=== PATIENT | male | born 1990 | race Caucasian/White ===

== ENCOUNTER 2019-07-15 21:10 | Emergency (ER) | payer MEDICAID, SELFPAY ==
[2019-07-15 21:11] VITALS: BP 154/78; PULSE 103; RESP 18; TEMP 36.3; O2SAT 99; BMI 34.5
--- NOTE | 2019-07-15 21:19 | ED.DCSUM_ITS ---
History of Present Illness Chief Complaint: Nausea/Vomiting/Diarrhea Informant: Patient Onset: Today Context: Gradual Onset Timing: Continuous Current Severity: Moderate Maximum Severity: Severe Narrative: The patient presents to the emergency department nausea, vomiting, diarrhea. He states that his daughter is sick with similar symptoms and has been for 2 days. He states that about 1:00 today, he just started to feel generally ill. He states that about 5 PM, he began to vomit. Shortly thereafter, he began to have multiple bouts of loose, watery diarrhea. He states it was happening at the same time. He felt lightheaded and felt like he was going to pass out. He does describe some abdominal cramping. The patient is otherwise healthy. He is on no daily medications. He is unsure if he had fever. He denies any other systemic symptoms. Prior similar symptoms: No Recent Illness/Hospitalization: No Past Medical History - Allergies and Home Meds Allergies/Adverse Reactions: Allergies No Known Allergies Allergy (Verified 07/15/19 21:11) Primary Care Physician: Chey Dailey MD [Primary Care Provider] - Prior records reviewed: Yes Past Medical History: None Surgical History: no surgical history Smoking Status: Never smoker Review of Systems General: Reports: Chills. Denies: Fever, Sweats Eyes: Denies: Visual changes - bilaterally, Diplopia ENT: Denies: Rhinorrhea, Sore throat Cardiovascular: Denies: Chest pain, Palpitations Respiratory: Denies: Dyspnea, Cough, Dyspnea on exertion Gastrointestinal: Reports: Abdominal pain, Nausea, Vomiting, Diarrhea. Denies: Melena, Hematochezia Genitourinary: Denies: Dysuria, Hematuria, Frequency Musculoskeletal: Denies: Back pain, Extremity Pain Skin: Denies: Rash, Wounds Neurological: Denies: Headache, Weakness, Numbness Physical Exam Vital Signs/Narrative: Vital Signs Temp Pulse Resp BP Pulse Ox 07/15/19 21:11 97.4 F L 103 H 18 154/78 H 99 Inital Vital Signs reviewed: Yes General: Well nourished, Well developed, No Acute Distress Head: Normocephalic, Atraumatic Eyes: Perrl, EOMI ENT: Moist mucous membranes, No rhinorrhea Neck: Supple, Nontender Cardiovascular: Regular rate, Regular rhythm, No murmurs Respiratory: No distress, CTA bilaterally, Chest nontender Abdomen: Soft, Nondistended, Tender, Hyperactive bowel sounds. Negative for: Guarding, Rebound tenderness, Psoas sign, Obturator sign, Rovsig's sign, Covarrubias's sign Back: Nontender, Normal Inspection Extremities: Nontender, No edema Skin: Normal color, No rash Neurological: Alert, Oriented x3, Cranial nerves II-XII grossly intact, Normal Strength, Normal Sensation Psychological: Normal affect, Normal Mood Diagnostic/Tx/Re-eval Abnormal Lab Results 07/15/19 07/15/19 21:23 21:23 WBC 21.5 H RBC 5.13 Hgb 15.1 Hct 44.3 MCV 86.4 MCH 29.4 MCHC 34.1 RDW Std Deviation 39.5 RDW Coeff of [place] 12.7 Plt Count 373 MPV 9.2 Immature Gran % (Auto) 0.900 Neut % (Auto) 89.8 H Lymph % (Auto) 3.7 L [place] % (Auto) 4.7 Eos % (Auto) 0.7 Baso % (Auto) 0.2 Absolute Neuts (auto) 19.3 H Absolute Lymphs (auto) 0.79 L Nucleated RBC % 0 Sodium 139 Potassium 3.8 Chloride 104 Carbon Dioxide 27.0 Anion Gap 8 BUN 18 Creatinine 1.12 Estim Creat Clear Calc 118.40 Est GFR (MDRD) Af Amer 99 Est GFR (MDRD) Non-Af 82 BUN/Creatinine Ratio 16.1 Glucose 136 H Calcium 8.9 Total Bilirubin 0.60 AST 21 ALT 50 Alkaline Phosphatase 94 Total Protein 8.4 H Albumin 4.3 Globulin 4.1 Albumin/Globulin Ratio 1.0 - Medical Decision Making The patient presents with nausea, vomiting, diarrhea. He does have sick contacts with similar illness at home. His abdomen was soft with minimal diffuse tenderness, but no rebound or guarding. His bowel sounds are hyperactive. IV was established. Patient was given fluids and antiemetics. He was still feeling nauseated. Screening labs do show cytosis, but based on his illness I do feel that this fits. His electrolytes were obtained were unremarkable. The patient did have better control of his nausea after medication. The plan will be to aggressively hydrate the patient and reevaluate him. As long as he is tolerating oral and feeling improved, I do feel that he can safely be discharged. Impression 1. Gastroenteritis ED Disposition - Plan for ED Patient: Instructions: GASTROENTERITIS, Viral (5y-Adult) Prescriptions: Ondansetron [Zofran Odt] 4 mg PO Q8H PRN PRN #10 tab PRN Reason: Nausea Prescription Printed Referrals: Chey Dailey MD [Primary Care Provider] -
[2019-07-15 21:20] VITALS: PULSE 91; RESP 18; O2SAT 99
[2019-07-15] MEDS: 0.9% Normal Saline 1,000 ML 1000 ML IV ×2 (21:22→23:07)
[2019-07-15] MEDS: proMETHazine 25 MG/ML Syringe 12.5 MG IV (21:24)
[2019-07-15 21:29] LABS: Absolute Lymphocyte Count 0.79 X10^3/uL (0.83-4.51); Absolute Neutrophil Count 19.3 X10^3/uL (2.0-7.7); Basophil# 0.05 X10^3/uL; Basophil% 0.2 % (0-1); Eosinophil# 0.15 X10^3/uL; Eosinophils% 0.7 % (0-5); Hematocrit 44.3 % (40-54); Hemoglobin 15.1 g/dL (13.0-16.5); Lymphocyte # 0.79 X10^3/ul (4.0); Lymphocyte % 3.7 % (19-41); Mean Corp Hgb Conc 34.1 g/dL (32-36); Mean Corpuscular Hgb 29.4 pg (27.0-32.0); Mean Corpuscular Volume 86.4 fL (80-94); Mean Platelet Vol. 9.2 fl (6.2-12.0); Monocyte# 1.01 X10^3/uL; Monocyte% 4.7 % (0-10); NRBC Flagged by Analyzer 0 % (0-5); Neutrophil # 19.31 X10^3/uL (2.7-7.7); Neutrophil % 89.8 % (47-70); Platelet Count 373 K/mm3 (150-450); RBC Distribution Width CV 12.7 % (11.6-14.6); RBC Distribution Width SD 39.5 fl (35.1-43.9); Red Blood Count 5.13 M/mm3 (4.6-6.2); White Blood Count 21.5 K/mm3 (4.4-11.0)
[2019-07-15 21:46] LABS: AST(SGOT) 21 U/L (15-37); Alanine Aminotransfer ALT/SGPT 50 U/L (16-61); Albumin, Serum 4.3 g/dL (3.2-5.0); Alkaline Phosphatase 94 U/L (45-117); Anion Gap 8 (5-15); BUN 18 mg/dL (7-18); BUN/Creat Ratio 16.1 RATIO (10-20); Calcium,Total 8.9 mg/dL (8.5-10.1); Chloride 104 mmol/L (98-107); Creatinine, Serum 1.12 mg/dL (0.70-1.30); EST Glomerular Filtration Rate 82 mL/min (>60); Est Glom Filt Rate - Afr Amer 99 mL/min (>60); Globulin 4.1 g/dL (2.2-4.2); Glucose 136 mg/dL (74-106); Potassium 3.8 mmol/L (3.5-5.1); Protein, Total 8.4 g/dL (6.4-8.2); Sodium Level 139 mmol/L (136-145)
[2019-07-15] MEDS: Ondansetron 4 MG/2 ML Vial IV (21:57)
[2019-07-15 23:35] VITALS: PULSE 94; RESP 24; O2SAT 95
[2019-07-16 02:32] VITALS: BP 142/67; PULSE 105; RESP 20; O2SAT 96
== END 2019-07-16 02:33 | disposition home or self-care (01) ==
LOC: ED 21:33
PROVIDERS: Emergency Provider Emergency Medicine; Family Provider Internal Medicine; PCP Internal Medicine
DX: K52.9 Noninfective gastroenteritis and colitis, unspecified (principal)
CPT/HCPCS: 80053; 85025; 96361; 96374; 96375; 99284; J7030; A4216; J2405

== ENCOUNTER 2020-10-02 09:34 | Emergency (ER) | payer OTHER, MEDICAID, SELFPAY ==
[2020-10-02 09:35] VITALS: BP 160/89; PULSE 86; RESP 18; TEMP 36.6; O2SAT 99; BMI 31.6
--- NOTE | 2020-10-02 09:59 | ED.VISSUMM ---
- ER Visit Summary Date of Service: 10/02/20 Chief Complaint: [Injury to left knee] History of Present Illness: The patient is a 30 M [presents to the emergency department with an injury to the left knee that occurred this morning while at work. Patient states that he works at [employer] and slipped on wet tile causing him to fall awkwardly and twisting the knee. Patient having hard time bearing weight secondary to pain he was able to bear some weight. Patient is concerned because he has had prior femur fracture at the age of 14 that required ORIF. Patient denies any other injuries. This is a Workmen's Comp. injury.] Physical Examination: [HEENT-PERRLA, EOMI. Cranial nerves II through XII grossly intact. TMs clear. Mucous membranes moist. No adenopathy. Cardiovascular-regular rate and rhythm without murmur or ectopy Lungs-clear to auscultation, chest wall stable without crepitus or subcu emphysema Abdomen-normoactive bowel sounds, soft, nontender, no rebound or rigidity, no peritoneal signs. Extremities-intact ?4, normal range of motion, normal pulses. Left knee-patient has diffuse tenderness palpation over the lateral joint line. No obvious effusion noted. No significant swelling noted. Patient has normal anterior and posterior drawer test. Patient does have pain with stress on lateral collateral ligament and there is question of mild laxity noted. Negative Angel's test. Patient neurovascular intact distally. Test Results: [4 view x-rays of left knee obtained and interpreted by myself as no acute fractures or dislocations. Radiology was in agreement but also noted that there was a small joint effusion.] Emergency Department Course and Treatment: [Patient was placed in a knee immobilizer and given crutches.] Treatment Plan: [Patient will be given a prescription for [place] for pain. Patient was given work restrictions. Patient will be referred to orthopedics for follow-up.] Disposition: [Discharged home in stable condition] Impression: [Left knee sprain-possible internal derangement] This note was generated with [employer] software. It may contain incorrect words, spelling, and punctuation that were not noted in review of the chart prior to signing ED Disposition - Plan for ED Patient: Referrals: Chey Dailey MD [Primary Care Provider] -
--- NOTE | 2020-10-02 10:57 | RAD_ITS ---
STUDY: X-RAY - LEFT KNEE REASON FOR EXAM: Male, 30 years old. FELL AT WORK TODAY, PREVIOUS FEMUR SURGERY SEVERAL YEARS AGO TECHNIQUE: 5 view(s) of the knee. COMPARISON: None. FINDINGS: 2 metallic screws are seen at the level of the distal femoral metaphysis. Normal visualized proximal tibia and fibula. Normal proximal tibiofibular articulation. Normal medial femorotibial compartment. Normal lateral femorotibial compartment. Normal patellofemoral articulation. Small joint effusion. RAD/Knee 4 or More Views IMPRESSION: Small joint effusion. 2. Metallic screws are seen in the distal femoral metaphysis. Electronically Signed: Kris Peterson MD at 11:15 EST , Service support ,
--- NOTE | 2020-10-02 11:19 | DCINST.ED_ITS ---
ED Disposition - Plan for ED Patient: Instructions: ED Meniscal Injury Knee Poss, ED Knee Sprain Prescriptions: Hydrocodone Bitart/Apap 5-325 [[place] 5MG-325MG] 1 tab PO Q4H PRN PRN 2 Days #10 tab PRN Reason: Pain Prescription Printed Referrals: Chey Dailey MD [Primary Care Provider] - Teo Devine MD [STAFF PHYSICIAN] - 3-5 Days
== END 2020-10-02 12:08 | disposition home or self-care (01) ==
LOC: ED 10:11
PROVIDERS: Emergency Provider Emergency Medicine; PCP Internal Medicine
DX: S83.92XA Sprain of unspecified site of left knee, initial encounter (principal); W01.0XXA Fall on same level from slipping, tripping and stumbling without subsequent striking against object, initial encounter; Y93.9 Activity, unspecified; Y92.511 Restaurant or cafe as the place of occurrence of the external cause; Y99.0 Civilian activity done for income or pay; Z79.899 Other long term (current) drug therapy
CPT/HCPCS: 73564; 99284

== ENCOUNTER 2021-11-13 19:51 | Outpatient (CLI) | payer MEDICAID, SELFPAY | END 2021-11-13 23:59 | disposition home or self-care (01) | PROVIDERS: PCP Internal Medicine; Visit Provider Internal Medicine | DX: G47.33 Obstructive sleep apnea (adult) (pediatric) (principal) | CPT/HCPCS: 95811 ==

== ENCOUNTER → 2025-04-27 | Outpatient (CLI) | payer MEDICAID, SELFPAY ==
--- NOTE | 2025-04-27 16:59 | MRI_ITS ---
PROCEDURE: LOWER EXT JOINT ONLY (ROUTINE) 04/28/2025 REASON FOR EXAM: MCL VS MENISCAL INJURY TECHNIQUE: Procedure Code: MRILEJ Modality: MR Procedure: LOWER EXT JOINT ONLY (ROUTINE) Multiplanar and multisequence images were obtained without IV contrast administration. COMPARISON: none FINDINGS: High signal of the patellar articular cartilage with no underlying marrow edema. The body and posterior horn of the medial meniscus shows high signal interrupting its meniscocapsular attachment an inferior articular surface. Intact lateral meniscus. Intact anterior cruciate ligament Intact posterior cruciate ligament. Intact collateral and retinacular ligaments. Intact patellar and quadriceps tendons. Mild knee joint effusion with no synovial hypertrophy. Lateral femoral condyle bone island. Lobulated fluid seen encasing the popliteus tendon. No marrow infiltrative lesions. Normal MR appearance of the nay-articular musculature with preserved inter- muscular fat planes. MRI/Lower Ext Joint Only (Routine) IMPRESSION: Grade II patellar chondromalacia. Tor body and posterior horn of the medial meniscus. Mild knee joint effusion. Popliteus ganglion cyst. Reading [facility] [id number]
== END | disposition home or self-care (01) ==
LOC: MRI 16:57
PROVIDERS: PCP Internal Medicine; Referring Provider Nurse Practitioner Family; Visit Provider Nurse Practitioner Family
DX: M23.91 Unspecified internal derangement of right knee (principal); S83.411A Sprain of medial collateral ligament of right knee, initial encounter; X58.XXXA Exposure to other specified factors, initial encounter
CPT/HCPCS: 73721